=== PATIENT | male | born 1990 | race African-American/Black ===

== ENCOUNTER 2023-08-10 09:12 | Emergency (ER) | payer OTHER ==
[~2023-08-10] VITALS: Ht 177.8 cm; Wt 100.0 kg
[2023-08-10 09:17] VITALS: O2SAT 98
[2023-08-10] MEDS ORDERED: OXYCODONE HCL/ACETAMINOPHEN 5/325MG TABLET PO ONE (09:30)
[2023-08-10] MEDS ORDERED: IBUP-2028 PO (10:59)
[2023-08-10 11:56] VITALS: BP 164/104; PULSE 63; RESP 19; TEMP 98.3
== END 2023-08-10 12:08 | disposition home or self-care (01) ==
LOC: ER 09:30
DX: M79.18 Myalgia, other site (principal); W01.0XXA Fall on same level from slipping, tripping and stumbling without subsequent striking against object, initial encounter; Y93.89 Activity, other specified; Y92.89 Other specified places as the place of occurrence of the external cause; Y99.8 Other external cause status
CPT/HCPCS: 73030; 73551; 73590; 73600; 99284

== ENCOUNTER 2025-05-31 05:38 | Inpatient (IN) | payer OTHER ==
[~2025-05-31] VITALS: Ht 165.1 cm; Wt 78.0 kg
[~2025-05-31 05:38] MED LIST: IBUP-2028 PO
[2025-05-31 05:40] VITALS: O2SAT 100
[2025-05-31] MEDS: MORPHINE SULFATE 4 MG/ML INJ (FOR IV/IM USE) IV ONE ×2 (06:24→08:19)
[2025-05-31 06:51] LABS: BASOPHILS % 0.9 % (0.0-2.0); EOSINOPHILS % 2.2 % (0.0-5.0); HEMATOCRIT. 41.4 % (42.0-52.0); HEMOGLOBIN. 13.6 g/dL (14.0-18.0); LYMPHOCYTES % 20.3 % (20.0-50.0); MEAN PLATELET VOLUME 8.5 fl (7.4-10.4); MONOCYTES % 6.8 % (2.0-8.0); NEUTROPHILS % 69.8 % (40.0-76.0); PLATELET 236 x1000/uL (130-400); RED BLOOD CELL COUNT 4.90 mill/uL (4.7-6.1); RED CELL DISTRIBUTION WIDTH 14.7 % (11.6-14.6)
[2025-05-31 07:09] LABS: CREATININE 1.1 mg/dL (0.6-1.3); UREA NITROGEN BLOOD 10 mg/dL (9-23)
[2025-05-31 07:11] LABS: TROPONIN I HIGH SENSITIVITY < 4 ng/L (3.0-53)
[2025-05-31 10:30] LABS: TROPONIN I HIGH SENSITIVITY 4 ng/L (3.0-53)
[2025-05-31] MEDS: IOHEXOL-350 100 ML BOTTLE ONE (11:48)
[2025-05-31 12:33] LABS: CLARITY URINE CLEAR (CLEAR); COLOR URINE YELLOW (YELLOW); GLUCOSE URINE NEGATIVE (NEGATIVE); KETONES URINE NEGATIVE (NEGATIVE); LEUKOCYTE ESTERASE URINE NEGATIVE (NEGATIVE); NITRITE URINE NEGATIVE (NEGATIVE); OCCULT BLOOD URINE NEGATIVE (NEGATIVE); PH URINE 7.5 (4.5-8.0); PROTEIN URINE NEGATIVE (NEGATIVE); SPECIFIC GRAVITY URINE 1.022 (1.005-1.030); UROBILINOGEN URINE 0.2 E.U./dL (0.2-1.0)
[2025-05-31 14:30] VITALS: BP 148/97; PULSE 65; RESP 18; TEMP 36.6404
[2025-05-31 16:00] VITALS: BP 148/97; PULSE 65; RESP 18; TEMP 36.6; O2SAT 100
[2025-05-31] MEDS ORDERED: LISI2.5T47 MT (16:12)
[2025-05-31] MEDS ORDERED: TRAM50TA3 MT (16:12)
[2025-05-31] MEDS ORDERED: TRAM100C3 PO (16:12)
[2025-05-31 20:00] VITALS: BP 149/84; PULSE 52; RESP 20; TEMP 36.6; O2SAT 99
[2025-05-31] MEDS ORDERED: CLONIDINE 0.1MG TABLET PO PRN (20:00)
[2025-05-31] MEDS ORDERED: IPRATROPIUM/ALBUTEROL 0.5-3(2.5)MG/3ML NEB HHN PRN (20:00)
[2025-05-31] MEDS ORDERED: DOCUSATE SODIUM 100MG CAPSULE PO PRN (20:00)
[2025-05-31] MEDS ORDERED: DIPHENHYDRAMINE 50MG/ML VIAL IV PRN (20:00)
[2025-05-31] MEDS ORDERED: ACETAMINOPHEN 325MG TABLET PO PRN (20:00)
[2025-05-31] MEDS ORDERED: MAGNESIUM/ALUMINUM HYDROXIDE/SIMETHICONE 30ML UDC PO PRN (20:00)
[2025-05-31] MEDS ORDERED: GUAIFENESIN 200MG/10ML SUGAR FREE UDC PO PRN (20:00)
[2025-05-31] MEDS: NITROGLYCERIN 0.4MG TABLET SL SL PRN (20:46)
[2025-05-31] MEDS: LISINOPRIL 10MG TABLET PO SCH (20:46)
[2025-05-31] MEDS: ACETAMINOPHEN 325MG TABLET PO PRN (21:10)
[2025-05-31] MEDS: ALPRAZOLAM 0.25 MG TABLET PO NR (22:07)
[2025-05-31 23:29] LABS: *AMPHETAMINES SCREEN URINE NEGATIVE (NEGATIVE); *BARBITURATES SCREEN URINE NEGATIVE (NEGATIVE); *BENZODIAZEPINES SCREEN URINE NEGATIVE (NEGATIVE); *COCAINE SCREEN URINE NEGATIVE (NEGATIVE); CANNABINOID URINE SCREEN PRESUMPTIVE POSITIVE (NEGATIVE); ECSTASY MDMA SCREEN URINE NEGATIVE (NEGATIVE); METHADONE URINE SCREEN NEGATIVE (NEGATIVE); OPIATES URINE SCREEN PRESUMPTIVE POSITIVE (NEGATIVE); PHENCYCLIDINE URINE SCREEN NEGATIVE (NEGATIVE)
[2025-06-01] VITALS: BP 141/91; PULSE 96; RESP 18; TEMP 36.5; O2SAT 98
[2025-06-01 01:03] LABS: TROPONIN I HIGH SENSITIVITY 5 ng/L (3.0-53)
[2025-06-01 01:04] LABS: CREATINE KINASE MB FRACTION 0.6 ng/mL (0.5-3.6)
[2025-06-01 04:00] VITALS: BP 125/77; PULSE 47; RESP 18; TEMP 36.4; O2SAT 99
[2025-06-01 08:00] VITALS: BP 151/99; PULSE 50; RESP 15; TEMP 36.6; O2SAT 95
[2025-06-01] MEDS: PANTOPRAZOLE SODIUM 40 MG/VIAL IV SCH ×2 (08:46→21:32)
[2025-06-01 11:51] LABS: BASOPHILS % 0.3 % (0.0-2.0); EOSINOPHILS % 1.2 % (0.0-5.0); HEMATOCRIT. 43.7 % (42.0-52.0); HEMOGLOBIN. 14.3 g/dL (14.0-18.0); LYMPHOCYTES % 17.7 % (20.0-50.0); MEAN PLATELET VOLUME 8.5 fl (7.4-10.4); MONOCYTES % 8.2 % (2.0-8.0); NEUTROPHILS % 72.6 % (40.0-76.0); PLATELET 265 x1000/uL (130-400); RED BLOOD CELL COUNT 5.19 mill/uL (4.7-6.1); RED CELL DISTRIBUTION WIDTH 15.1 % (11.6-14.6)
[2025-06-01 12:00] VITALS: BP 125/81; PULSE 54; RESP 20; TEMP 36.6; O2SAT 100
[2025-06-01 12:04] LABS: CREATININE 1.2 mg/dL (0.6-1.3); TRIGLYCERIDE 70 mg/dL (0-150); UREA NITROGEN BLOOD 8 mg/dL (9-23)
[2025-06-01 12:05] LABS: CREATINE KINASE MB FRACTION 0.7 ng/mL (0.5-3.6); LDL CHOLESTEROL 100 mg/dL (5-100)
[2025-06-01 12:08] LABS: T4 FREE 1.61 ng/dL (0.89-1.76)
[2025-06-01 12:18] LABS: TROPONIN I HIGH SENSITIVITY < 4 ng/L (3.0-53)
[2025-06-01 16:00] VITALS: BP 150/93; PULSE 49; RESP 16; TEMP 36.6; O2SAT 99
[2025-06-01] MEDS: IBUPROFEN 600MG TABLET PO SCH (16:00)
[2025-06-01 20:00] VITALS: BP 137/93; PULSE 52; RESP 18; TEMP 36.8; O2SAT 97
[2025-06-01] MEDS ORDERED: COLCHICINE 0.6MG TABLET PO SCH (21:00)
[2025-06-01] MEDS: KETOROLAC 15MG/ML VIAL IV PRN (21:34)
[2025-06-02] VITALS: BP 113/77; PULSE 44; RESP 19; TEMP 36.6; O2SAT 99
[2025-06-02 04:00] VITALS: BP 147/91; PULSE 48; RESP 17; TEMP 36.4; O2SAT 98
[2025-06-02] MEDS: SODIUM CHLORIDE 0.9% 1,000 ML IV SCH (06:35)
[2025-06-02 08:00] VITALS: BP 154/93; PULSE 91; RESP 16; TEMP 36.4; O2SAT 98
[2025-06-02 08:34] LABS: PLATELET 235 x1000/uL (130-400); RED BLOOD CELL COUNT 5.22 mill/uL (4.7-6.1); RED CELL DISTRIBUTION WIDTH 15.1 % (11.6-14.6)
[2025-06-02] MEDS: ENOXAPARIN 40MG/0.4ML SYR SUBCUT SCH (08:42)
[2025-06-02 08:45] LABS: CREATININE 1.1 mg/dL (0.6-1.3); UREA NITROGEN BLOOD 10 mg/dL (9-23)
[2025-06-02 08:47] LABS: PHOSPHORUS 3.1 mg/dL (2.5-4.9)
[2025-06-02 12:00] VITALS: BP 184/104; PULSE 65; RESP 16; TEMP 36.7; O2SAT 98
[2025-06-02] MEDS: HYDRALAZINE 20MG/ML VIAL IV PRN (13:18)
== END 2025-06-02 13:50 | disposition home or self-care (01) | DRG 206 ==
LOC: ER 05:38 → 5WST 09:58 → CANBEDREQ 10:01
PROVIDERS: ADMIT Internal Medicine; ATTEND Internal Medicine
DX: M94.0 Chondrocostal junction syndrome [Tietze] (principal); I31.9 Disease of pericardium, unspecified; I16.0 Hypertensive urgency; D64.9 Anemia, unspecified; F12.10 Cannabis abuse, uncomplicated; I10 Essential (primary) hypertension; K21.9 Gastro-esophageal reflux disease without esophagitis; Z79.899 Other long term (current) drug therapy
CPT/HCPCS: 36415; 71045; 71275; 80048; 80061; 80305; 81003; 82550; 82553; 83735; 84100; 84439; 84443; 84484; 85025; 85027; 93005; 93306; 96374; 96376; 99285; J0360; J1650; J1885; J2270; J2470; J7030; Q9967